=== PATIENT | female | born 1980 | race Caucasian/White ===

== ENCOUNTER 2016-08-21 15:44 | Emergency (ER) | payer SELFPAY ==
[~2016-08-21] VITALS: Ht 167.6 cm; Wt 68.0 kg
[2016-08-21] MEDS ORDERED: IBUPROFEN 600MG TABLET PO ONE (16:45)
[2016-08-21 17:50] VITALS: BP 132/80
== END 2016-08-21 17:55 | disposition home or self-care (01) ==
LOC: ER 16:09
DX: M54.5 Low back pain (principal); R10.32 Left lower quadrant pain; M79.605 Pain in left leg; R03.0 Elevated blood-pressure reading, without diagnosis of hypertension
CPT/HCPCS: 81025; 99283

== ENCOUNTER 2022-09-27 05:15 | Emergency (ER) | payer OTHER ==
[~2022-09-27] VITALS: Ht 160 cm; Wt 74.0 kg
[2022-09-27 05:44] VITALS: TEMP 98.1; O2SAT 99
[2022-09-27 06:17] LABS: BASOPHILS % 0.4 % (0.0-2.0); EOSINOPHILS % 2.9 % (0.0-5.0); HEMATOCRIT. 33.2 % (36.0-48.0); HEMOGLOBIN. 10.7 g/dL (12.0-16.0); LYMPHOCYTES % 30.8 % (20.0-50.0); MEAN CORPUSCULAR HEMOGLOBIN 23.4 pg (28.0-32.0); MEAN CORPUSCULAR VOLUME 72.4 fL (81.0-99.0); MEAN PLATELET VOLUME 8.5 fl (7.4-10.4); MONOCYTES % 6.6 % (2.0-8.0); NEUTROPHILS % 59.3 % (40.0-76.0); PLATELET 258 x1000/uL (130-400); RED BLOOD CELL COUNT 4.58 mill/uL (4.2-5.4); RED CELL DISTRIBUTION WIDTH 18.6 % (11.6-14.6)
[2022-09-27 06:32] LABS: CHLORIDE 111 mEq/L (98-107)
[2022-09-27 06:34] LABS: HCG SCREEN NEGATIVE
[2022-09-27 08:58] LABS: CLARITY URINE CLEAR (CLEAR); COLOR URINE YELLOW (YELLOW); KETONES URINE NEGATIVE (NEGATIVE); LEUKOCYTE ESTERASE URINE NEGATIVE (NEGATIVE); NITRITE URINE NEGATIVE (NEGATIVE); OCCULT BLOOD URINE NEGATIVE (NEGATIVE); PH URINE 5.5 (4.5-8.0); PROTEIN URINE NEGATIVE (NEGATIVE); UROBILINOGEN URINE 0.2 E.U./dL (0.2-1.0)
[2022-09-27 09:35] VITALS: BP 101/43; PULSE 74; RESP 16
[2022-09-27] MEDS ORDERED: IBUPROFEN 600MG TABLET PO STA (09:35)
[2022-09-27] MEDS ORDERED: IBUP-2029 MT (11:32)
== END 2022-09-27 11:43 | disposition home or self-care (01) ==
LOC: ER 05:15
DX: R10.9 Unspecified abdominal pain (principal)
CPT/HCPCS: 36415; 74176; 80053; 81003; 84703; 85025; 99284